=== PATIENT | male | born 1960 | race Caucasian/White ===

== ENCOUNTER 2018-06-06 14:16 | Emergency (ER) | payer OTHER ==
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
[2018-06-06] MEDS ORDERED: Sodium Chloride 0.9% 1,000 ML IV SCH (15:45)
[2018-06-06] MEDS ORDERED: Sodium Chloride 0.9% 10 ML Syringe FLUSH ONE (15:51)
[2018-06-06] MEDS ORDERED: Sodium Chloride 0.9% 80 ML IV SCH (16:00)
[2018-06-06] MEDS ORDERED: Iopamidol 612 MG/ML 100 ML Bottle IV SCH (16:00)
[2018-06-06] MEDS ORDERED: Ketorolac 30 MG/ML SDV IVPUSH ONE (16:29)
[2018-06-06 16:40] VITALS: BP 118/68
== END 2018-06-06 17:47 | disposition home or self-care (01) ==
LOC: JP.ED 14:16
DX: S22.31XA Fracture of one rib, right side, initial encounter for closed fracture (principal); S32.039A Unspecified fracture of third lumbar vertebra, initial encounter for closed fracture; S32.049A Unspecified fracture of fourth lumbar vertebra, initial encounter for closed fracture; S40.021A Contusion of right upper arm, initial encounter; I10 Essential (primary) hypertension; F17.210 Nicotine dependence, cigarettes, uncomplicated; Z88.6 Allergy status to analgesic agent; Z79.899 Other long term (current) drug therapy; V86.59XA Driver of other special all-terrain or other off-road motor vehicle injured in nontraffic accident, initial encounter
CPT/HCPCS: 36415; 71260; 74177; 80048; 85025; 96361; 96374; 99285; J1885; J7030; J7050; Q9967; 99284

== ENCOUNTER 2019-04-03 01:03 | Emergency (ER) | payer OTHER ==
[2019-04-03 01:20] VITALS: BP 159/99
[2019-04-03] MEDS ORDERED: Doxycycline 100 MG Cap PO ONE (01:30)
--- NOTE | 2019-04-03 01:34 | EDM.PDOC ---
ED HPI GENERAL MEDICAL PROBLEM - General Chief Complaint: Bite:Animal, Insect Stated Complaint: TICK BITE Time Seen by Provider: 04/03/19 01:30 Source of Information: Reports: Patient, Family, RN Notes Reviewed History Limitations: Reports: No Limitations - History of Present Illness INITIAL COMMENTS - FREE TEXT/NARRATIVE: 58-year-old gentleman presents emergency department today complaint of tick bite to his abdomen he just found this within the last 12 hours he has no other symptoms at this time - Related Data Allergies Allergy/AdvReac Type Severity Reaction Status Date / Time aspirin Allergy Swelling Verified 08/29/18 12:50 Home Meds: Home Meds Acetaminophen [Tylenol] 650 mg PO Q4HR PRN 09/01/15 [History] FLUoxetine [PROzac] 80 mg PO DAILY 04/03/19 [History] Gabapentin [Neurontin] 600 mg PO BEDTIME 04/03/19 [History] Past Medical History Cardiovascular History: Reports: Hypertension Genitourinary History: Reports: UTI, Recurrent Musculoskeletal History: Reports: Arthritis, Fracture Other Musculoskeletal History: lower back fx fx ribs 3 months ago Neurological History: Reports: Concussion Psychiatric History: Reports: Anxiety, Depression Hematologic History: Reports: Anemia, Other (See Below) Other Hematologic History: 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 Oncologic (Cancer) History: Reports: Basal Cell Carcinoma - Infectious Disease History Infectious Disease History: Reports: Chicken Pox - Past Surgical History Cardiovascular Surgical History: Reports: None Social & Family History - Family History Family Medical History: Noncontributory - Tobacco Use Smoking Status *Q: Current Every Day Smoker Years of Tobacco use: 10 Packs/Tins Daily: 0.5 - Caffeine Use Caffeine Use: Reports: Soda - Recreational Drug Use Recreational Drug Use: No ED ROS GENERAL - Review of Systems Review Of Systems: See Below Skin: Reports: Wound ED EXAM, ANIMAL BITE - Physical Exam Exam: See Below Text/Narrative:: He does have the tick present it is small consistent deer tick I was able to remove the head of the deer tick from his abdominal wound with #11 blade Exam Limited By: No Limitations General Appearance: Alert, WD/WN, No Apparent Distress Course - Vital Signs Last Recorded V/S: Last Vital Signs Temp 96.9 F 04/03/19 01:14 Pulse 105 H 04/03/19 01:14 Resp 16 04/03/19 01:14 BP 159/99 H 04/03/19 01:14 Pulse Ox 97 04/03/19 01:14 - Orders/Labs/Meds Orders: Active Orders 24 hr Category Date Time Status Doxycycline [Vibramycin] Med 04/03/19 01:30 Once 200 mg PO ONETIME ONE Departure - Departure Time of Disposition: 01:33 Disposition: Home, Self-Care 01 Condition: Fair Clinical Impression: Tick bite of abdomen Qualifiers: Encounter type: initial encounter Qualified Code(s): S30.861A - Insect bite ( nonvenomous) of abdominal wall, initial encounter; W57.XXXA - Bitten or stung by nonvenomous insect and other nonvenomous arthropods, initial encounter - Discharge Information Instructions: Tick Bite Information, Adult, [id number] Referrals: PCP,None [Primary Care Provider] - Additional Instructions: Please followup with your primary care provider in 3-5 days if not better, please call return to the emergency department with worsening of symptoms. - My Orders Last 24 Hours: My Active Orders 04/03/19 01:30 Doxycycline [Vibramycin] 200 mg PO ONETIME ONE - Assessment/Plan Last 24 Hours: My Active Orders 04/03/19 01:30 Doxycycline [Vibramycin] 200 mg PO ONETIME ONE Plan: Assessment Acuity = acute Site and laterality = tick bite to the abdomen Etiology = Ixodes scapularis Manifestations = none Location of injury = Home Lab values = none Plan Treat with doxycycline 200 mg by mouth 1 follow-up primary care 3-5 days development of symptoms This note was dictated using [employer] voice recognition software please call with any questions on syntax or grammar.
== END 2019-04-03 01:43 | disposition home or self-care (01) ==
LOC: JP.ED 01:03
DX: S30.861A Insect bite (nonvenomous) of abdominal wall, initial encounter (principal); F17.210 Nicotine dependence, cigarettes, uncomplicated; F41.9 Anxiety disorder, unspecified; F32.9 Major depressive disorder, single episode, unspecified; I10 Essential (primary) hypertension; W57.XXXA Bitten or stung by nonvenomous insect and other nonvenomous arthropods, initial encounter; Z79.899 Other long term (current) drug therapy; Z88.8 Allergy status to other drugs, medicaments and biological substances
CPT/HCPCS: 99282; A9270

== ENCOUNTER 2019-12-20 10:57 | Emergency (ER) | payer OTHER ==
--- NOTE | 2019-12-20 11:38 | EDM.PDOC ---
ED HPI GENERAL MEDICAL PROBLEM - General Chief Complaint: Upper Extremity Injury/Pain Stated Complaint: R RING FINGER INJURY Time Seen by Provider: 12/20/19 11:15 Source of Information: Reports: Patient History Limitations: Reports: No Limitations - History of Present Illness INITIAL COMMENTS - FREE TEXT/NARRATIVE: Patient got his right gloved hand caught in machinery at work and is complaining of intense pain in his right middle finger Onset: Today Onset Date: 12/20/19 Onset Time: 10:50 Location: Reports: Lower Extremity, Right Quality: Reports: Stabbing Severity: Severe Improves with: Reports: Movement - Related Data Allergies Allergy/AdvReac Type Severity Reaction Status Date / Time aspirin Allergy Swelling Verified 08/29/18 12:50 Home Meds: Home Meds Acetaminophen [Tylenol] 650 mg PO Q4HR PRN 09/01/15 [History] FLUoxetine [PROzac] 80 mg PO DAILY 04/03/19 [History] Gabapentin [Neurontin] 600 mg PO BEDTIME 04/03/19 [History] Past Medical History Cardiovascular History: Reports: Hypertension Genitourinary History: Reports: UTI, Recurrent Musculoskeletal History: Reports: Arthritis, Fracture Other Musculoskeletal History: lower back fx fx ribs 3 months ago Neurological History: Reports: Concussion Psychiatric History: Reports: Anxiety, Depression Hematologic History: Reports: Anemia, Other (See Below) Other Hematologic History: 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 Oncologic (Cancer) History: Reports: Basal Cell Carcinoma - Infectious Disease History Infectious Disease History: Reports: Chicken Pox - Past Surgical History Cardiovascular Surgical History: Reports: None Social & Family History - Family History Family Medical History: Noncontributory - Caffeine Use Caffeine Use: Reports: Soda Review of Systems - Review of Systems Review Of Systems: See Below Respiratory: Reports: No Symptoms Cardiovascular: Reports: No Symptoms Musculoskeletal: Reports: Hand Pain (Screw sheeting right middle finger.) Skin: Reports: No Symptoms ED EXAM, GENERAL - Physical Exam Exam: See Below Exam Limited By: No Limitations General Appearance: Alert, WD/WN, Severe Distress Eye Exam: Bilateral Eye: EOMI Ears: Normal External Exam Nose: Normal Inspection Throat/Mouth: Normal Inspection Respiratory/Chest: No Respiratory Distress Cardiovascular: Normal Peripheral Pulses GI/Abdominal: Soft, Non-Tender Extremities: Other (Right third digit exhibits swelling in the distal phalanx with blood around the base of the nail. There is no obvious deformity. Right fourth digit exhibits a circumferential laceration just distal to the distal inner phalangeal joint. Is a near complete amputation.) Neurological: Alert, Oriented Psychiatric: Anxious Skin Exam: Warm, Dry Course - Orders/Labs/Meds Orders: Active Orders 24 hr Category Date Time Status Hand 2V Rt [CR] Stat Exams 12/20/19 Taken COMPREHENSIVE METABOLIC PN,CMP [CHEM] Routine Lab 12/20/19 11:44 Received INR,PT,PROTHROMBIN TIME [COAG] Routine Lab 12/20/19 11:44 Received PTT,PARTIAL THROMBOPLSTIN TIME [COAG] Routine Lab 12/20/19 11:44 Received Sodium Chloride 0.9% [Normal Saline] 1,000 ml Med 12/20/19 11:30 Active IV ASDIRECTED Medication Orders Sodium Chloride (Normal Saline) 1,000 mls @ 150 mls/hr IV ASDIRECTED NEY Labs: Laboratory Tests 12/20/19 Range/Units 11:44 WBC 9.5 (4.5-11.0) K/uL RBC 5.07 (4.30-5.90) M/uL Hgb 14.7 D (12.0-15.0) g/dL Hct 45.0 (40.0-54.0) % MCV 89 (80-98) fL MCH 29 (27-31) pg MCHC 33 (32-36) % Plt Count 218 (150-400) K/uL Meds: Medications Generic Name Dose Route Start Last Admin Trade Name Freq PRN Reason Stop Dose Admin Sodium Chloride 1,000 mls @ 150 mls/hr 12/20/19 11:30 Normal Saline IV ASDIRECTED NEY Discontinued Medications Generic Name Dose Route Start Last Admin Trade Name Freq PRN Reason Stop Dose Admin Hydromorphone HCl 1 mg 12/20/19 11:29 12/20/19 11:45 Dilaudid IVPUSH 12/20/19 11:30 1 mg ONETIME ONE Administration Ondansetron HCl 4 mg 12/20/19 11:29 12/20/19 11:49 Zofran IVPUSH 12/20/19 11:30 4 mg ONETIME ONE Administration Departure - Departure Time of Disposition: 12:06 ([place] the patient with on-call physician at [facility] Dr. hZu. Patient has been accepted there.) Disposition: DC/Tfer to Other 70 Condition: Fair Clinical Impression: Crushing injury of finger, right - Discharge Information Referrals: PCP,None [Primary Care Provider] - Forms: ED Department Discharge, Interfacility Transfer [facility] Sepsis Event Note - Focused Exam Date Exam was Performed: 12/20/19 Time Exam was Performed: 11:52 - My Orders Last 24 Hours: My Active Orders 12/20/19 Hand 2V Rt [CR] Stat 12/20/19 11:30 Sodium Chloride 0.9% [Normal Saline] 1,000 ml IV ASDIRECTED 12/20/19 11:44 COMPREHENSIVE METABOLIC PN,CMP [CHEM] Routine INR,PT,PROTHROMBIN TIME [COAG] Routine PTT,PARTIAL THROMBOPLSTIN TIME [COAG] Routine - Assessment/Plan Last 24 Hours: My Active Orders 12/20/19 Hand 2V Rt [CR] Stat 12/20/19 11:30 Sodium Chloride 0.9% [Normal Saline] 1,000 ml IV ASDIRECTED 12/20/19 11:44 COMPREHENSIVE METABOLIC PN,CMP [CHEM] Routine INR,PT,PROTHROMBIN TIME [COAG] Routine PTT,PARTIAL THROMBOPLSTIN TIME [COAG] Routine
[2019-12-20] MEDS: HYDROmorphone 1 MG/ML Syringe IVPUSH ONE ×2 (11:45→12:06)
[2019-12-20] MEDS: Ondansetron 4 MG/2 ML SDV IVPUSH ONE (11:49)
[2019-12-20] MEDS: Sodium Chloride 0.9% 1,000 ML IV SCH (11:59)
[2019-12-20] MEDS: Diphtheria,Pertussis(Acell),Tetanus Vaccine 0.5 ML SDV IM ONE (12:10)
[2019-12-20] MEDS: ceFAZolin 1 GM in Sodium Chloride 0.9% 50 ML IV ONE (12:12)
--- NOTE | 2019-12-20 12:24 | CRLCR ---
Indication: Right hand trauma Technique: Two images of the right hand. The study is limited due to overlying bandage material Comparison: None Findings: Transverse fracture with associated amputation of the distal tuft of the right ring finger. The soft tissues that contain the distal phalanx are from the remainder of the finger. I question a nondisplaced transverse fracture through the distal phalanx of the middle finger of the imaging is suboptimal and I am uncertain whether this is a true positive finding. Impression: 1. Transverse amputation type fracture of the distal tuft of the right ring finger. I question a nondisplaced fracture through the midportion of the distal phalanx of the right middle finger though this is not a definite finding. 2. Extensive soft tissue injury. Limited due to overlying bandage material Dictated by Giancarlo Richards MD @ Dec 20 2019 12:20PM Signed by Dr. Giancarlo Richards @ Dec 20 2019 12:22PM
== END 2019-12-20 12:51 | disposition other institution (70) ==
LOC: JP.ED 10:57
DX: S67.192A Crushing injury of right middle finger, initial encounter (principal); I10 Essential (primary) hypertension; Z88.6 Allergy status to analgesic agent; W31.9XXA Contact with unspecified machinery, initial encounter; Y99.0 Civilian activity done for income or pay
CPT/HCPCS: 36415; 73120; 80053; 85027; 85610; 85730; 90471; 90715; 96365; 96375; 99284; J0690; J1170; J2405; J7030; J7050

== ENCOUNTER 2019-12-23 17:23 | Emergency (ER) | payer OTHER ==
[2019-12-23 17:57] VITALS: BP 177/102; PULSE 127
--- NOTE | 2019-12-23 18:12 | EDM.PDOC ---
ED HPI GENERAL MEDICAL PROBLEM - General Chief Complaint: Wound Recheck Stated Complaint: WOUND RECHECK Time Seen by Provider: 12/23/19 18:08 Source of Information: Reports: Patient, RN Notes Reviewed History Limitations: Reports: No Limitations - History of Present Illness INITIAL COMMENTS - FREE TEXT/NARRATIVE: 59-year-old gentleman presents emergency department today for wound check he is status post amputation of digit #4 right hand was evaluated and treated at [facility]. He does have follow-up with orthopedics next week in [place] he has no complaints today - Related Data Allergies Allergy/AdvReac Type Severity Reaction Status Date / Time aspirin Allergy Swelling Verified 08/29/18 12:50 Home Meds: Home Meds Acetaminophen [Tylenol] 650 mg PO Q4HR PRN 09/01/15 [History] FLUoxetine [PROzac] 80 mg PO DAILY 04/03/19 [History] Gabapentin [Neurontin] 600 mg PO BEDTIME 04/03/19 [History] Amoxicillin/Potassium Clav [Amox-Clav 875-125 mg Tablet] 1 tab PO BID 12/23/19 [ History] oxyCODONE HCl/Acetaminophen [Oxycodone-Acetaminophen 5-325] 1 tab PO ASDIRECTED PRN 12/23/19 [History] Past Medical History Cardiovascular History: Reports: Hypertension Genitourinary History: Reports: UTI, Recurrent Musculoskeletal History: Reports: Arthritis, Fracture Other Musculoskeletal History: lower back fx fx ribs 3 months ago Neurological History: Reports: Concussion Psychiatric History: Reports: Anxiety, Depression Hematologic History: Reports: Anemia, Other (See Below) Other Hematologic History: 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 Oncologic (Cancer) History: Reports: Basal Cell Carcinoma - Infectious Disease History Infectious Disease History: Reports: Chicken Pox - Past Surgical History Cardiovascular Surgical History: Reports: None Social & Family History - Family History Family Medical History: Noncontributory - Tobacco Use Smoking Status *Q: Current Some Day Smoker Years of Tobacco use: 40 Packs/Tins Daily: 1 - Caffeine Use Caffeine Use: Reports: Coffee, Energy Drinks, Soda - Recreational Drug Use Recreational Drug Use: No ED ROS GENERAL - Review of Systems Review Of Systems: See Below Constitutional: Reports: No Symptoms Skin: Reports: Wound ED EXAM, GENERAL - Physical Exam Exam: See Below Free Text/Narrative:: Examination of the digit #4 in the right hand there is a skin flap that has been created it is healing well there is no erythema progressing up the digits he has limited range of the digit secondary to pain Exam Limited By: No Limitations General Appearance: Alert, WD/WN, No Apparent Distress Course - Vital Signs Last Recorded V/S: Last Vital Signs Temp 97.7 F 12/23/19 17:54 Pulse 127 H 12/23/19 17:54 Resp 16 12/23/19 17:54 BP 177/102 H 12/23/19 17:54 Pulse Ox 93 L 12/23/19 17:54 Departure - Departure Time of Disposition: 18:11 Disposition: Home, Self-Care 01 Condition: Fair Clinical Impression: Visit for wound check - Discharge Information Referrals: PCP,None [Primary Care Provider] - Additional Instructions: Please keep your follow-up appointment with orthopedics next week call or return to the emergency department with worsening of symptoms Sepsis Event Note - Evaluation Sepsis Screening Result: No Definite Risk - Focused Exam Vital Signs: Vital Signs Temp Pulse Resp BP Pulse Ox 12/23/19 17:54 97.7 F 127 H 16 177/102 H 93 L 12/23/19 17:37 97.7 F 127 H 16 177/102 H 93 L Date Exam was Performed: 12/23/19 Time Exam was Performed: 18:09 - Assessment/Plan Plan: Assessment Acuity = acute Site and laterality = wound check Etiology = secondary to trauma Manifestations = none Location of injury = work Lab values = none Plan Dressing was re-changed by nursing staff he will follow-up with orthopedics next week This note was dictated using [employer] voice recognition software please call with any questions on syntax or grammar.
== END 2019-12-23 18:20 | disposition home or self-care (01) ==
LOC: JP.ED 17:23
DX: Z48.89 Encounter for other specified surgical aftercare (principal); F41.9 Anxiety disorder, unspecified; F32.9 Major depressive disorder, single episode, unspecified; F17.210 Nicotine dependence, cigarettes, uncomplicated; Z88.6 Allergy status to analgesic agent; Z79.899 Other long term (current) drug therapy
CPT/HCPCS: 99282

== ENCOUNTER 2019-12-25 10:38 | Day surgery (SDC) | payer OTHER ==
[2019-12-25] MEDS ORDERED: Lidocaine 1% 20 ML MDV ONE (10:47)
[2019-12-25] MEDS ORDERED: Sodium Chloride 0.9% 1,000 ML IV SCH (11:30)
[2019-12-25] MEDS ORDERED: fentaNYL 100 MCG/2 ML SDV ONE (11:42)
[2019-12-25] MEDS ORDERED: Propofol 200 MG/20 ML SDV ONE ×3 (11:42→13:17)
[2019-12-25] MEDS ORDERED: Midazolam 1 MG/ML 2 ML SDV ONE (11:42)
[2019-12-25] MEDS ORDERED: ceFAZolin 2 GM in Premix Bag 1 BAG IV ONE (12:00)
[2019-12-25] MEDS ORDERED: Povidone-Iodine 10% Soln 118.25 ML Bottle ONE (12:39)
[2019-12-25] MEDS ORDERED: fentaNYL 100 MCG/2 ML SDV IVPUSH ONE (14:03)
[2019-12-25] MEDS ORDERED: oxyCODONE 5 MG Tab PO ONE (14:39)
[2019-12-25 15:28] VITALS: BP 127/76; PULSE 79
== END 2019-12-25 15:40 | disposition home or self-care (01) ==
LOC: JP.SDS 10:38
PROVIDERS: ATTEND Orthopaedic Surgery
DX: S62.632B Displaced fracture of distal phalanx of right middle finger, initial encounter for open fracture (principal); S68.624A Partial traumatic transphalangeal amputation of right ring finger, initial encounter; F32.9 Major depressive disorder, single episode, unspecified; G47.33 Obstructive sleep apnea (adult) (pediatric); F17.210 Nicotine dependence, cigarettes, uncomplicated; Z79.899 Other long term (current) drug therapy; Z88.8 Allergy status to other drugs, medicaments and biological substances; W23.0XXA Caught, crushed, jammed, or pinched between moving objects, initial encounter
CPT/HCPCS: 26236; 26765; 76000; A9270; J0690; J2001; J2250; J2704; J3010; J7030

== ENCOUNTER 2020-03-16 22:58 | Emergency (ER) | payer OTHER ==
[2020-03-16] MEDS ORDERED: Lactated Ringers 1,000 ML IV ONE (23:24)
[2020-03-16] MEDS ORDERED: Acetaminophen 325 MG Tab PO ONE (23:24)
[2020-03-16] MEDS ORDERED: Sodium Chloride 0.9% 10 ML Syringe FLUSH PRN (23:26)
--- NOTE | 2020-03-16 23:28 | EDM.PDOC ---
ED HPI GENERAL MEDICAL PROBLEM - General Chief Complaint: Bite:Animal, Insect Stated Complaint: BODY ACHES,COUGH Time Seen by Provider: 03/16/20 23:19 Source of Information: Reports: Patient, RN Notes Reviewed History Limitations: Reports: No Limitations - History of Present Illness INITIAL COMMENTS - FREE TEXT/NARRATIVE: 59-year-old gentleman presents emergency department a complaint of body aches heavy eyes lightheadedness he states he had a similar feeling when he was bit by a tick last year he has been out in the [place] he did not find a deer tick he has not had a rash but he does have a potential exposure he has been ill for about 3 days has been feverish at home. body aches Pain Score (Numeric/FACES): 9 headache Pain Score (Numeric/FACES): 9 - Related Data Allergies Allergy/AdvReac Type Severity Reaction Status Date / Time aspirin Allergy Swelling Verified 03/16/20 23:02 ibuprofen Allergy Other Verified 03/16/20 23:02 ketorolac [From Toradol] Allergy Swollen Verified 03/16/20 23:02 Tongue naproxen [From Naprosyn] Allergy Other Verified 03/16/20 23:02 Home Meds: Home Meds Acetaminophen [Tylenol] 650 mg PO Q4HR PRN 09/01/15 [History] FLUoxetine [PROzac] 80 mg PO DAILY 04/03/19 [History] Gabapentin [Neurontin] 600 mg PO BEDTIME 04/03/19 [History] Cyanocobalamin (Vitamin B-12) [Vitamin B-12] 1,000 mcg SL DAILY 12/25/19 [ History] Thiamine HCl [Vitamin B-1] 100 mg PO DAILY 12/25/19 [History] buPROPion HCL [Wellbutrin Xl] 300 mg PO DAILY 12/25/19 [History] Past Medical History Cardiovascular History: Reports: Hypertension Respiratory History: Reports: Sleep Apnea Genitourinary History: Reports: UTI, Recurrent Musculoskeletal History: Reports: Arthritis, Fracture Other Musculoskeletal History: lower back fx and fx ribs Neurological History: Reports: Concussion Psychiatric History: Reports: Anxiety, Depression Endocrine/Metabolic History: Reports: Obesity/BMI 30+ Hematologic History: Reports: Anemia, Other (See Below) Other Hematologic History: 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 Oncologic (Cancer) History: Reports: Basal Cell Carcinoma - Infectious Disease History Infectious Disease History: Reports: Chicken Pox - Past Surgical History HEENT Surgical History: Reports: Adenoidectomy, Myringotomy w Tube(s), Naso- Sinus Surgery, Tonsillectomy Cardiovascular Surgical History: Reports: None Social & Family History - Family History Family Medical History: Noncontributory - Tobacco Use Smoking Status *Q: Current Every Day Smoker Years of Tobacco use: 15 Packs/Tins Daily: 0.2 Second Hand Smoke Exposure: Yes - Caffeine Use Caffeine Use: Reports: None - Recreational Drug Use Recreational Drug Use: No ED ROS GENERAL - Review of Systems Review Of Systems: See Below Constitutional: Reports: Fever, Chills, Fatigue HEENT: Reports: No Symptoms Respiratory: Reports: No Symptoms Cardiovascular: Reports: Lightheadedness GI/Abdominal: Reports: No Symptoms : Reports: No Symptoms Musculoskeletal: Reports: Muscle Pain ED EXAM, ANIMAL BITE - Physical Exam Exam: See Below Exam Limited By: No Limitations General Appearance: Alert, WD/WN, No Apparent Distress Respiratory/Chest: No Respiratory Distress, Lungs Clear, Normal Breath Sounds, No Accessory Muscle Use, Chest Non-Tender Cardiovascular: No Murmur, Tachycardia GI/Abdominal: Soft, Non-Tender Course - Vital Signs Last Recorded V/S: Last Vital Signs Temp 96.7 F L 03/17/20 01:29 Pulse 103 H 03/17/20 01:29 Resp 19 03/17/20 01:29 BP 148/84 H 03/17/20 01:29 Pulse Ox 96 03/17/20 01:29 - Orders/Labs/Meds Orders: Active Orders 24 hr Category Date Time Status Peripheral IV Care [RC] . DIRECTED Care 03/16/20 23:26 Active Sodium Chloride 0.9% [Saline Flush] Med 03/16/20 23:26 Active 10 ml FLUSH ASDIRECTED PRN Peripheral IV Insertion Adult [OM.PC] Urgent Oth 03/16/20 23:26 Ordered Medication Orders Sodium Chloride (Saline Flush) 10 ml FLUSH ASDIRECTED PRN PRN Reason: Keep Vein Open Last Admin: 03/16/20 23:35 Dose: 10 ml Labs: Laboratory Tests 03/16/20 03/16/20 03/16/20 Range/Units 23:45 23:45 23:45 WBC (4.5-11.0) K/uL RBC (4.30-5.90) M/uL Hgb (12.0-15.0) g/dL Hct (40.0-54.0) % MCV (80-98) fL MCH (27-31) pg MCHC (32-36) % Plt Count (150-400) K/uL Neut % (Auto) (36-66) % Lymph % (Auto) (24-44) % Dorado % (Auto) (2-6) % Eos % (Auto) (2-4) % Baso % (Auto) (0-1) % Sodium 133 L (140-148) mmol/L Potassium 4.0 (3.6-5.2) mmol/L Chloride 98 L (100-108) mmol/L Carbon Dioxide 25 (21-32) mmol/L Anion Gap 14.0 (5.0-14.0) mmol/L BUN 11 (7-18) mg/dL Creatinine 1.1 (0.8-1.3) mg/dL Est Cr Clr Drug Dosing 78.91 mL/min Estimated GFR (MDRD) > 60 (>60) Glucose 138 H (74-106) mg/dL Lactic Acid 1.4 (0.4-2.0) mmol/L Calcium 8.3 L (8.5-10.1) mg/dL Total Bilirubin 0.4 (0.2-1.0) mg/dL AST 70 H D (15-37) U/L ALT 124 H (12-78) U/L Alkaline Phosphatase 82 (46-116) U/L Lactate Dehydrogenase 324 H (85-227) U/L Total Protein 7.0 (6.4-8.2) g/dL Albumin 3.3 L (3.4-5.0) g/dL Globulin 3.7 H (2.3-3.5) g/dL Albumin/Globulin Ratio 0.9 L (1.2-2.2) /31/20 Range/Units 23:50 WBC 4.9 (4.5-11.0) K/uL RBC 5.63 (4.30-5.90) M/uL Hgb 16.5 H (12.0-15.0) g/dL Hct 48.4 (40.0-54.0) % MCV 86 (80-98) fL MCH 29 (27-31) pg MCHC 34 (32-36) % Plt Count 80 L (150-400) K/uL Neut % (Auto) 67 H (36-66) % Lymph % (Auto) 21 L (24-44) % Dorado % (Auto) 12 H (2-6) % Eos % (Auto) 0 L (2-4) % Baso % (Auto) 1 (0-1) % Sodium (140-148) mmol/L Potassium (3.6-5.2) mmol/L Chloride (100-108) mmol/L Carbon Dioxide (21-32) mmol/L Anion Gap (5.0-14.0) mmol/L BUN (7-18) mg/dL Creatinine (0.8-1.3) mg/dL Est Cr Clr Drug Dosing mL/min Estimated GFR (MDRD) (>60) Glucose (74-106) mg/dL Lactic Acid (0.4-2.0) mmol/L Calcium (8.5-10.1) mg/dL Total Bilirubin (0.2-1.0) mg/dL AST (15-37) U/L ALT (12-78) U/L Alkaline Phosphatase (46-116) U/L Lactate Dehydrogenase (85-227) U/L Total Protein (6.4-8.2) g/dL Albumin (3.4-5.0) g/dL Globulin (2.3-3.5) g/dL Albumin/Globulin Ratio (1.2-2.2) Meds: Medications Generic Name Dose Route Start Last Admin Trade Name Freq PRN Reason Stop Dose Admin Sodium Chloride 10 ml 03/16/20 23:26 03/16/20 23:35 Saline Flush FLUSH 10 ml ASDIRECTED PRN Administration Keep Vein Open Discontinued Medications Generic Name Dose Route Start Last Admin Trade Name Freq PRN Reason Stop Dose Admin Acetaminophen 650 mg 03/16/20 23:24 03/16/20 23:35 Tylenol PO 03/16/20 23:25 650 mg NOW ONE Administration Hydromorphone HCl 0.5 mg 03/17/20 01:07 03/17/20 01:25 Dilaudid IVPUSH 03/17/20 01:08 0.5 mg ONETIME ONE Administration Lactated Ringer's 1,000 mls @ 999 mls/hr 03/16/20 23:24 03/16/20 23:35 Ringers, Lactated IV 03/17/20 00:24 999 mls/hr BOLUS ONE Administration Doxycycline Hyclate 100 mg/ 100 mls @ 100 mls/hr 03/17/20 01:07 03/17/20 01: 26 Sodium Chloride IV 03/17/20 02:06 100 mls/hr ONETIME ONE Administration Departure - Departure Time of Disposition: 02:32 Disposition: Home, Self-Care 01 Condition: Fair Clinical Impression: Tick bite Qualifiers: Encounter type: initial encounter Qualified Code(s): W57.XXXA - Bitten or stung by nonvenomous insect and other nonvenomous arthropods, initial encounter - Discharge Information Instructions: Tick Bite Information, Adult Referrals: Manuel Licona MD [Primary Care Provider] - Forms: ED Department Discharge Additional Instructions: Take full course of antibiotics, use Tylenol as needed for fever control and body aches, please followup with your primary care provider in 3-5 days if not better, please call return to the emergency department with worsening of symptoms. Sepsis Event Note - Evaluation Sepsis Screening Result: Possible Sepsis Risk - Focused Exam Vital Signs: Vital Signs Temp Pulse Resp BP Pulse Ox 03/17/20 01:29 96.7 F L 103 H 19 148/84 H 96 03/17/20 00:24 100.6 F 106 H 24 H 145/99 H 91 L 03/16/20 23:55 100.1 F 110 H 28 H 139/95 H 96 03/16/20 23:18 115 H 18 132/93 H 95 03/16/20 23:12 98.0 F 116 H 11 L 172/99 H 95 03/16/20 23:10 98.0 F 116 H 11 L 172/99 H 95 Date Exam was Performed: 03/17/20 Time Exam was Performed: 02:30 - My Orders Last 24 Hours: My Active Orders 03/16/20 23:26 Peripheral IV Care [RC] . DIRECTED Sodium Chloride 0.9% [Saline Flush] 10 ml FLUSH ASDIRECTED PRN Peripheral IV Insertion Adult [OM.PC] Urgent - Assessment/Plan Last 24 Hours: My Active Orders 03/16/20 23:26 Peripheral IV Care [RC] . DIRECTED Sodium Chloride 0.9% [Saline Flush] 10 ml FLUSH ASDIRECTED PRN Peripheral IV Insertion Adult [OM.PC] Urgent Plan: Acuity = acute Site and laterality = probable tickborne illness Etiology = Ixodes scapularis Manifestations = none Location of injury = Home Lab values = platelets low at 80 consistent with thrombocytopenia, sodium low at 133 consistent hyponatremia lactic acid normal 1.4 AST elevated 70 ALT elevated 124 consistent with elevated liver enzymes LDH is elevated 324 Plan He felt significantly better after 1 dose of Dilaudid and 1 dose of doxycycline , plan is discharged home on doxycycline 100 mg p.o. twice daily x14 days follow -up primary care 3 to 5 days if no improvement
[2020-03-17] MEDS ORDERED: HYDROmorphone 0.5 MG/0.5 ML Syringe IVPUSH ONE (01:07)
[2020-03-17] MEDS ORDERED: Doxycycline 100 MG in Sodium Chloride 0.9% 100 ML IV ONE (01:07)
[2020-03-17 01:29] VITALS: BP 148/84; PULSE 103
== END 2020-03-17 02:58 | disposition home or self-care (01) ==
LOC: JP.ED 22:58
DX: T14.8XXA Other injury of unspecified body region, initial encounter (principal); E66.9 Obesity, unspecified; Z68.34 Body mass index [BMI] 34.0-34.9, adult; I10 Essential (primary) hypertension; F41.9 Anxiety disorder, unspecified; F32.9 Major depressive disorder, single episode, unspecified; F17.210 Nicotine dependence, cigarettes, uncomplicated; Z88.6 Allergy status to analgesic agent; Z88.8 Allergy status to other drugs, medicaments and biological substances; W57.XXXA Bitten or stung by nonvenomous insect and other nonvenomous arthropods, initial encounter
CPT/HCPCS: 36415; 80053; 83605; 83615; 85025; 96361; 96365; 96375; 99283; 99284; A9270; J1170; J3490; J7050; J7120

== ENCOUNTER 2020-03-18 19:40 | Observation (INO) | payer OTHER ==
[2020-03-18] MEDS ORDERED: Lactated Ringers 1,000 ML IV SCH (20:15)
[2020-03-18] MEDS ORDERED: Doxycycline 100 MG in Sodium Chloride 0.9% 100 ML IV ONE (20:16)
[2020-03-18] MEDS ORDERED: HYDROmorphone 1 MG/ML Syringe IVPUSH ONE (20:26)
--- NOTE | 2020-03-18 20:27 | EDM.PDOC ---
ED HPI GENERAL MEDICAL PROBLEM - General Chief Complaint: General Stated Complaint: SOB,WEAK Time Seen by Provider: 03/18/20 20:14 Source of Information: Reports: Patient, Old Records, RN Notes Reviewed History Limitations: Reports: No Limitations - History of Present Illness INITIAL COMMENTS - FREE TEXT/NARRATIVE: 59-year-old gentleman presents emergency department a complaint of body aches and fever, I had the opportunity to evaluate him 2 days prior was suspicious for tickborne illness he did have a tick exposure however no bite was found he is the only family member that is ill we did do treatment of doxycycline IV as well as started p.o. antibiotics. He states initially he felt better but he just never has fully recovered fevers continue body aches continue he also complains of headache does have an allergy to NSAIDs, has been using Tylenol for pain Generalized Pain Score (Numeric/FACES): 9 - Related Data Allergies Allergy/AdvReac Type Severity Reaction Status Date / Time aspirin Allergy Swelling Verified 03/16/20 23:02 ibuprofen Allergy Other Verified 03/16/20 23:02 ketorolac [From Toradol] Allergy Swollen Verified 03/16/20 23:02 Tongue naproxen [From Naprosyn] Allergy Other Verified 03/16/20 23:02 Home Meds: Home Meds Acetaminophen [Tylenol] 650 mg PO Q4HR PRN 09/01/15 [History] FLUoxetine [PROzac] 80 mg PO DAILY 04/03/19 [History] Gabapentin [Neurontin] 600 mg PO BEDTIME 04/03/19 [History] Cyanocobalamin (Vitamin B-12) [Vitamin B-12] 1,000 mcg SL DAILY 12/25/19 [ History] Thiamine HCl [Vitamin B-1] 100 mg PO DAILY 12/25/19 [History] buPROPion HCL [Wellbutrin Xl] 300 mg PO DAILY 12/25/19 [History] Doxycycline [Doxycycline Hyclate] 100 mg PO BID 03/18/20 [History] Past Medical History Cardiovascular History: Reports: Hypertension Respiratory History: Reports: Sleep Apnea Genitourinary History: Reports: UTI, Recurrent Musculoskeletal History: Reports: Arthritis, Fracture Other Musculoskeletal History: lower back fx and fx ribs Neurological History: Reports: Concussion Psychiatric History: Reports: Anxiety, Depression Endocrine/Metabolic History: Reports: Obesity/BMI 30+ Hematologic History: Reports: Anemia, Other (See Below) Other Hematologic History: 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 Oncologic (Cancer) History: Reports: Basal Cell Carcinoma - Infectious Disease History Infectious Disease History: Reports: Chicken Pox - Past Surgical History HEENT Surgical History: Reports: Adenoidectomy, Myringotomy w Tube(s), Naso- Sinus Surgery, Tonsillectomy Cardiovascular Surgical History: Reports: None Social & Family History - Family History Family Medical History: Noncontributory - Tobacco Use Smoking Status *Q: Current Every Day Smoker Years of Tobacco use: 15 Packs/Tins Daily: 0.5 - Caffeine Use Caffeine Use: Reports: Soda - Recreational Drug Use Recreational Drug Use: No ED ROS GENERAL - Review of Systems Review Of Systems: See Below Constitutional: Reports: Fever, Chills, Weakness, Diaphoresis HEENT: Reports: No Symptoms Respiratory: Reports: Shortness of Breath Cardiovascular: Reports: No Symptoms GI/Abdominal: Reports: No Symptoms : Reports: No Symptoms Musculoskeletal: Reports: Muscle Pain Skin: Reports: No Symptoms Neurological: Reports: No Symptoms Psychiatric: Reports: No Symptoms ED EXAM, GENERAL - Physical Exam Exam: See Below Exam Limited By: No Limitations General Appearance: Alert, Mild Distress Neck: Normal Inspection, Supple, Non-Tender, Full Range of Motion Respiratory/Chest: No Respiratory Distress, Lungs Clear, Normal Breath Sounds, No Accessory Muscle Use, Chest Non-Tender Cardiovascular: Regular Rate, Rhythm, No Murmur GI/Abdominal: Soft, Non-Tender Extremities: No Pedal Edema Course - Vital Signs Last Recorded V/S: Last Vital Signs Temp 97.7 F 03/18/20 20:06 Pulse 98 03/18/20 21:25 Resp 16 03/18/20 21:25 BP 140/78 03/18/20 21:25 Pulse Ox 94 L 03/18/20 21:25 - Orders/Labs/Meds Orders: Active Orders 24 hr Category Date Time Status Vital Signs [RC] Q1H Care 03/18/20 20:14 Active Chest 1V Frontal [CR] Urgent Exams 03/18/20 21:39 Taken BABESIA MICROTI ANTIBODY PANEL Urgent Lab 03/18/20 20:15 Received CORONAVIRUS COVID-19, SHELDON Stat Lab 03/18/20 20:16 Ordered CULTURE BLOOD [BC] Urgent Lab 03/18/20 20:15 Received CULTURE BLOOD [BC] Urgent Lab 03/18/20 20:33 Received HUMAN GRANULOCYTIC DAMIAN-HGE Urgent Lab 03/18/20 20:15 Received LYME, TOTAL AB TEST/REFLEX Urgent Lab 03/18/20 20:15 Received UA W/MICROSCOPIC [URIN] Urgent Lab 03/18/20 20:14 Ordered Lactated Ringers [Ringers, Lactated] 1,000 ml Med 03/18/20 20:15 Active IV ASDIRECTED Blood Culture x2 Reflex Set [OM.PC] Urgent Oth 03/18/20 20:14 Ordered Isolation [COMM] Routine Oth 03/18/20 20:16 Ordered Isolation [COMM] Routine Oth 03/18/20 20:24 Ordered Medication Orders Lactated Ringer's (Ringers, Lactated) 1,000 mls @ 999 mls/hr IV ASDIRECTED NEY Last Admin: 03/18/20 20:38 Dose: 999 mls/hr Labs: Laboratory Tests 03/18/20 03/18/20 03/18/20 Range/Units 20:33 20:33 20:33 WBC 5.2 (4.5-11.0) K/uL RBC 5.53 (4.30-5.90) M/uL Hgb 16.0 H (12.0-15.0) g/dL Hct 47.1 (40.0-54.0) % MCV 85 (80-98) fL MCH 29 (27-31) pg MCHC 34 (32-36) % Plt Count 98 L (150-400) K/uL Neut % (Auto) 70 H (36-66) % Lymph % (Auto) 15 L (24-44) % Cobb % (Auto) 14 H (2-6) % Eos % (Auto) 0 L (2-4) % Baso % (Auto) 1 (0-1) % Sodium 135 L (140-148) mmol/L Potassium 3.6 (3.6-5.2) mmol/L Chloride 99 L (100-108) mmol/L Carbon Dioxide 25 (21-32) mmol/L Anion Gap 14.6 H (5.0-14.0) mmol/L BUN 15 (7-18) mg/dL Creatinine 1.1 (0.8-1.3) mg/dL Est Cr Clr Drug Dosing 78.91 mL/min Estimated GFR (MDRD) > 60 (>60) Glucose 172 H (74-106) mg/dL Lactic Acid 1.8 (0.4-2.0) mmol/L Calcium 8.3 L (8.5-10.1) mg/dL Total Bilirubin 0.5 (0.2-1.0) mg/dL AST 63 H (15-37) U/L ALT 125 H (12-78) U/L Alkaline Phosphatase 84 (46-116) U/L C-Reactive Protein 2.94 H (0.0-0.3) mg/dL Total Protein 6.9 (6.4-8.2) g/dL Albumin 3.3 L (3.4-5.0) g/dL Globulin 3.6 H (2.3-3.5) g/dL Albumin/Globulin Ratio 0.9 L (1.2-2.2) Procalcitonin ng/mL 03/18/20 Range/Units 20:33 WBC (4.5-11.0) K/uL RBC (4.30-5.90) M/uL Hgb (12.0-15.0) g/dL Hct (40.0-54.0) % MCV (80-98) fL MCH (27-31) pg MCHC (32-36) % Plt Count (150-400) K/uL Neut % (Auto) (36-66) % Lymph % (Auto) (24-44) % Cobb % (Auto) (2-6) % Eos % (Auto) (2-4) % Baso % (Auto) (0-1) % Sodium (140-148) mmol/L Potassium (3.6-5.2) mmol/L Chloride (100-108) mmol/L Carbon Dioxide (21-32) mmol/L Anion Gap (5.0-14.0) mmol/L BUN (7-18) mg/dL Creatinine (0.8-1.3) mg/dL Est Cr Clr Drug Dosing mL/min Estimated GFR (MDRD) (>60) Glucose (74-106) mg/dL Lactic Acid (0.4-2.0) mmol/L Calcium (8.5-10.1) mg/dL Total Bilirubin (0.2-1.0) mg/dL AST (15-37) U/L ALT (12-78) U/L Alkaline Phosphatase (46-116) U/L C-Reactive Protein (0.0-0.3) mg/dL Total Protein (6.4-8.2) g/dL Albumin (3.4-5.0) g/dL Globulin (2.3-3.5) g/dL Albumin/Globulin Ratio (1.2-2.2) Procalcitonin 0.25 ng/mL Meds: Medications Generic Name Dose Route Start Last Admin Trade Name Freq PRN Reason Stop Dose Admin Lactated Ringer's 1,000 mls @ 999 mls/hr 03/18/20 20:15 03/18/20 20:38 Ringers, Lactated IV 999 mls/hr ASDIRECTED NEY Administration Discontinued Medications Generic Name Dose Route Start Last Admin Trade Name Freq PRN Reason Stop Dose Admin Hydromorphone HCl 1 mg 03/18/20 20:26 03/18/20 20:40 Dilaudid IVPUSH 03/18/20 20:27 1 mg ONETIME ONE Administration Doxycycline Hyclate 100 mg/ 100 mls @ 100 mls/hr 03/18/20 20:16 03/18/20 20: 38 Sodium Chloride IV 03/18/20 21:15 100 mls/hr ONETIME ONE Administration Departure - Departure Time of Disposition: 22:16 Disposition: Admitted As Inpatient 66 Condition: Fair Clinical Impression: Tick bite Qualifiers: Encounter type: initial encounter Qualified Code(s): W57.XXXA - Bitten or stung by nonvenomous insect and other nonvenomous arthropods, initial encounter - Discharge Information Referrals: Manuel Licona MD [Primary Care Provider] - Forms: ED Department Discharge Sepsis Event Note - Evaluation Sepsis Screening Result: No Definite Risk - Focused Exam Vital Signs: Vital Signs Temp Pulse Resp BP Pulse Ox 03/18/20 21:25 98 16 140/78 94 L 03/18/20 20:36 99 18 131/82 95 03/18/20 20:06 97.7 F 111 H 20 147/86 H 95 03/18/20 19:58 97.7 F 111 H 20 147/86 H 95 Date Exam was Performed: 03/18/20 Time Exam was Performed: 22:14 - My Orders Last 24 Hours: My Active Orders 03/18/20 20:14 Vital Signs [RC] Q1H UA W/MICROSCOPIC [URIN] Urgent Blood Culture x2 Reflex Set [OM.PC] Urgent 03/18/20 20:15 BABESIA MICROTI ANTIBODY PANEL Urgent CULTURE BLOOD [BC] Urgent HUMAN GRANULOCYTIC DAMIAN-HGE Urgent LYME, TOTAL AB TEST/REFLEX Urgent Lactated Ringers [Ringers, Lactated] 1,000 ml IV ASDIRECTED 03/18/20 20:16 CORONAVIRUS COVID-19, SHELDON Stat Isolation [COMM] Routine 03/18/20 20:24 Isolation [COMM] Routine 03/18/20 20:33 CULTURE BLOOD [BC] Urgent 03/18/20 21:39 Chest 1V Frontal [CR] Urgent - Assessment/Plan Last 24 Hours: My Active Orders 03/18/20 20:14 Vital Signs [RC] Q1H UA W/MICROSCOPIC [URIN] Urgent Blood Culture x2 Reflex Set [OM.PC] Urgent 03/18/20 20:15 BABESIA MICROTI ANTIBODY PANEL Urgent CULTURE BLOOD [BC] Urgent HUMAN GRANULOCYTIC DAMIAN-HGE Urgent LYME, TOTAL AB TEST/REFLEX Urgent Lactated Ringers [Ringers, Lactated] 1,000 ml IV ASDIRECTED 03/18/20 20:16 CORONAVIRUS COVID-19, SHELDON Stat Isolation [COMM] Routine 03/18/20 20:24 Isolation [COMM] Routine 03/18/20 20:33 CULTURE BLOOD [BC] Urgent 03/18/20 21:39 Chest 1V Frontal [CR] Urgent Plan: Assessment Acuity = acute Site and laterality = probable tickborne illness Etiology = Ixodes scapularis Manifestations = fever, body aches Location of injury = Home Lab values = CBC within normal limits platelets low at 98 consistent with thrombocytopenia glucose elevated 172 consistent with hyperglycemia lactic acid normal 1.8 AST elevated 63 ALT elevated 125 consistent with lipid enzymes being elevated CRP slightly elevated 294 procalcitonin normal at 0.25 chest x-ray I did review films myself I cannot appreciate any acute process, the official read from radiology is pending Plan Call discussed case with attending physician physician who agreed to come and evaluate the patient in the hospital for admission at [id number] thus far blood cultures have been drawn urine is pending doxycycline IV has been initiated This note was dictated using [employer] voice recognition software please call with any questions on syntax or grammar.
[2020-03-18] MEDS ORDERED: Acetaminophen 325 MG Tab, 50 Tab Bulk Bottle PO PRN (22:20)
[2020-03-18] MEDS ORDERED: cefTRIAXone 1 GM Vial IV SCH (23:15)
[2020-03-18] MEDS ORDERED: traMADol 50 MG Tab PO PRN (23:16)
[2020-03-18] MEDS ORDERED: cefTRIAXone 1 GM in Sodium Chloride 0.9% 50 ML IV SCH (23:30)
[2020-03-19] MEDS: Sodium Chloride 0.9% 1,000 ML IV SCH ×2 (00:02→08:05)
[2020-03-19] MEDS: Acetaminophen 325 MG Tab PO PRN ×3 (00:19→08:05)
--- NOTE | 2020-03-19 01:36 | HP ---
IDENTIFYING DATA: Giancarlo Pérez is a 59-year-old single male from [place]. CHIEF COMPLAINT: "I think I have a tick bite." HISTORY OF PRESENT ILLNESS: Adult male, currently on medical necessitated work leave following a work-related injury with amputation of distal aspect of the dominant right 4th finger, noted onset of constitutional symptoms including subjective fever, chilling, diaphoresis, general headache, aching eyes, anorexia, and nausea, with generalized stiffness and aching. Onset of symptoms was 5 days ago. After 2 days of persistent symptoms in spite of rest, fluids, and use of acetaminophen, he presented to the emergency room for evaluation. He was found to have indication of thrombocytopenia and mildly elevated transaminases with constitutional symptoms suggesting a probable tick-related infection. Doxycycline was initiated. He initially felt some improvement in his fevers and myalgias; however, with relapsing symptoms returned to the emergency room today. He denies sore throat, nasal congestion, coryza, cough, or noted shortness of breath. He is a tobacco user. No history of current hypertension, diabetes, obstructive pulmonary disease, or known COVID exposure. He has no history of identified cardiac disease. He is admitted for further supportive cares. PAST MEDICAL HISTORY: Noted history of PTSD secondary to experience. He is followed by [facility] with pharmacologic therapies in place. Does report a past history of elevated blood pressure with antihypertensive therapies having been discontinued when his blood pressures corrected. PREVIOUS SURGERIES: Include adenoidectomy, PE tube placement, sinus surgery, and tonsillectomy in the remote past. Additionally, with a work injury earlier this year he had near total amputation of the distal aspect of the right 4th finger requiring subsequent surgical amputation, skin flap, and engagement in occupational therapy services. ALLERGIES: REPORTED TO ASPIRIN, IBUPROFEN, KETOROLAC, AND NAPROXEN WITH REPORTS OF TONGUE SWELLING AND GENERALIZED PRURITUS. CURRENT MEDICATIONS: Acetaminophen 650 mg q.4 hours p.r.n., fluoxetine 80 mg daily, gabapentin 600 mg at bedtime, vitamin B12 1000 mcg daily, thiamine 100 mg daily, bupropion XL 300 mg daily, doxycycline 100 mg p.o. b.i.d. HABITS: Smoker of 1/3 pack per day. Caffeine intake averages 6 pack of carbonated beverage daily without use of coffee. No current alcohol use. Denies other illicit drug use. SOCIAL HISTORY: Resides with significant other. Currently on work leave secondary to work- related injury with engagement in occupational therapy services. 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 FAMILY HISTORY: Denies other familial or close contact history of COVID-19, acute respiratory symptoms, or similar constitutional symptoms. REVIEW OF SYSTEMS: NEUROLOGIC: History of depression and PTSD with accompanying anxiety, chronic, stable on pharmacologic therapies. No history of stroke, seizures, or focal weakness. CARDIAC: Hypertension by history. Otherwise unremarkable. RESPIRATORY: No shortness of breath, purulent sputum production, asthma, emphysema, or COVID-19 exposure. GASTROINTESTINAL: Denies chronic dyspepsia, nausea, hepatitis, jaundice, cholecystitis, or bowel changes. GENITOURINARY: No history of chronic renal disease, UTIs, or dysuria. Reports a history of passage of renal stone. PHYSICAL EXAMINATION: GENERAL: Appearance is that of an adult male, mildly listless in appearance, now feeling improvement in constitutional symptoms following administration of analgesic in the emergency room. INITIAL VITALS: Temperature 97.7, pulse 98, respiratory rate 16, blood pressure 140/78, O2 saturations 94% on room air. HEENT: No facial asymmetries. Pupils reactive. Mild sensitivity to light. Sclerae anicteric. No nasal congestion or coryza. Oral mucosa is moist. Noninflamed. NECK: No adenopathy, nuchal rigidity, or stridor. Brisk carotid pulses. LUNGS: Symmetrical, clear, resonant, non-tachypneic. HEART: Regular, without murmurs or gallops noted. ABDOMEN: Nontender, nondistended. No organomegaly. No guarding, rebound, or referred pain. No CVA tenderness. Active sounds. Good femoral pulses. EXTREMITIES: Warm, pink, and dry. Non-diaphoretic. Strong radial, posterior tibial, and dorsal pedal pulses are noted. Brisk capillary refill without paresthesias. Evidence of previous amputation of the distal aspect of the right 4th finger. Skin flap is closed. LABORATORY DATA: Labs on admission: WBC 5.2, hemoglobin 16.0, platelet count remains low at 98,000, with a differential of 70 neutrophils, 15 lymphocytes, 14 monocytes. Sodium 135, potassium 3.6, BUN 15, creatinine 1.1. Lactic acid within normal range at 1.8, glucose 172 in a nonfasting state. AST 63, ALT 125, alkaline phosphatase 84. C-reactive protein mildly elevated at 2.94. Procalcitonin 0.25. IMAGING: Chest x-ray, pulmonary beyer appear clear. No infiltrates or effusion. Cardiac silhouette is unremarkable. IMPRESSION: 1. Subjective fever, myalgias, arthralgias, and headaches. Suspect tick-borne infection. 2. History of recent partial amputation of the distal aspect of the right 4th finger, requiring surgical care and rehab services. 3. History of post-traumatic stress disorder with depression and anxiety, currently on pharmacologic therapy with stable symptoms. 4. Tobacco use. PLAN: The patient is admitted to observation status. In addition to oral doxycycline we will provide Rocephin 1 g IV daily during anticipated short-term hospital stay. Additional labs including COVID-19 and tick antibody panel is requested. We will provide tramadol on a p.r.n. basis for discomfort, noting allergic response to use of non-steroidals. Additionally, Tylenol can be administered on a p.r.n. basis in the event of documented fever or chills. Full code status anticipated. We will allow dietary intake as tolerated. Rick Lee MD /[id number]
[2020-03-19] MEDS ORDERED: traMADol 50 MG Tab PO PRN (05:23)
--- NOTE | 2020-03-19 06:32 | PN ---
DATE OF SERVICE: 03/19/2020 SUBJECTIVE: A 59-year-old male was admitted in the late night hours with subjective fever, chills, headaches, and myalgias with suspected tick-related infection. Had been on oral doxycycline for approximately 24 to 36 hours without improvement in symptoms before returning to the emergency room for evaluation. At time of ER visit, labs revealed a persistent thrombocytopenia with mildly elevated liver transaminases. WBC and hemoglobin were within normal limits as were general chemistries. COVID-19 screen, tick-borne disease panel, and blood cultures had been obtained with results pending through the nighttime. He rested the majority of the evening with fever identified by nursing caregiving staff this morning. He offers no additional new complaints. Generalized headache and myalgias persist. OBJECTIVE: VITAL SIGNS: T-max 39.1 degrees centigrade, blood pressure 125/97, pulse rate 73, respiratory rate 16. GENERAL: He was arousable, oriented, and notes general myalgias. No cough or sputum production. NECK: Without nuchal rigidity. LUNGS: Clear and nontachypneic. HEART: Regular without gallops. EXTREMITIES: Warm and pink. No rash noted. Diffuse mild arthralgias of large and small joints without visible soft tissue swelling. IMPRESSION AND PLAN: Febrile presentation. We will continue with combined antibiotic therapy with oral doxycycline and IV Rocephin initiated on admission yesterday evening. Continue to provide acetaminophen on a p.r.n. basis. The patient reports intolerance to nonsteroidals with previous angioedema. Await blood tick disease and coronavirus disease 19 panels, and continue to provide supportive cares with analgesics, acetaminophen, and if necessary IV fluids. [id number] Rick Lee MD /[id number]
[2020-03-19] MEDS ORDERED: buPROPion 150 MG Tab.ER PO SCH (09:00)
[2020-03-19] MEDS ORDERED: Thiamine 100 MG Tab PO SCH (09:00)
[2020-03-19] MEDS ORDERED: Doxycycline 100 MG Cap PO SCH (09:00)
[2020-03-19] MEDS ORDERED: FLUoxetine 20 MG Cap PO SCH (09:00)
[2020-03-19] MEDS ORDERED: Cyanocobalamin (Vitamin B12) 1,000 MCG Tab PO SCH (09:00)
[2020-03-19 10:43] VITALS: BP 128/61; PULSE 97
--- NOTE | 2020-03-19 10:58 | PCM.DCSUM1 ---
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 He was admitted for IV antibiotic therapy and IV fluid hydration with suspected significant anaplasmosis infection. Diagnosis: Stroke: No - Discharge Data Discharge Date: 03/19/20 Discharge Disposition: Home, Self-Care 01 Condition: Fair - Referral to Home Health Primary Care Physician: Manuel Licona MD - Discharge Diagnosis/Problem(s) (1) Anaplasmosis SNOMED Code(s): 879614328 ICD Code: A77.49 - OTHER EHRLICHIOSIS Status: Suspected - Patient Summary/Data Hospital Course: Masood presented to the emergency room with fever, shaking chills, headache and myalgias. He was recently started on doxycycline for presumed tickborne illness. He continued to have high fevers as well as a severe headache so he came back to the emergency room. There was some evidence for dehydration. He had a fever to 103 in the emergency room. He received IV ceftriaxone in addition to the doxycycline. Given the severity of his symptoms he was admitted to the hospital for further management. Overnight he had an additional fever but his temperature curve was improving. By the morning after discharge she is feeling a fair amount better. His headache has essentially resolved and his myalgias have resolved. Vital signs have been stable. He feels well enough to go home at this time. I did encourage him to maintain adequate hydration as the fever can be dehydrating. He has doxycycline at home and will complete his course of doxycycline. We did review the potential side effect of the medication that pertains to the increased sensitivity of the skin to sunlight. He will be following up if symptoms do not continue to get better or if they get worse. COVID19 testing was negative. - Patient Instructions Diet: Regular Diet as Tolerated Activity: As Tolerated Showering/Bathing: May Shower Notify Provider of: Fever, Increased Pain, Nausea and/or Vomiting Other/Special Instructions: 1. You were in the hospital for management of anaplasmosis that resulted from a tick bite. Your condition has been improving with IV antibiotics and some IV fluids. You should complete your course of doxycycline prescribed from the emergency room. You may take this antibiotic with food to avoid stomach upset. The antibiotic can make your skin more sensitive to the sun so it is very important to cover your skin or use sunscreen on exposed skin while you are taking the antibiotic. You may have fevers for the next several days as the infection improves but they should be smaller each day. You may use acetaminophen to help calm down the fevers when they do occur. It is also very important to drink plenty of fluids because the fevers can cause dehydration. - Discharge Plan *PRESCRIPTION DRUG MONITORING PROGRAM REVIEWED*: Not Applicable *COPY OF PRESCRIPTION DRUG MONITORING REPORT IN PATIENT [place]: Not Applicable Home Medications: Home Meds Acetaminophen [Tylenol] 650 mg PO Q4HR PRN 09/01/15 [History] FLUoxetine [PROzac] 80 mg PO DAILY 04/03/19 [History] Gabapentin [Neurontin] 600 mg PO BEDTIME 04/03/19 [History] Cyanocobalamin (Vitamin B-12) [Vitamin B-12] 1,000 mcg SL DAILY 12/25/19 [ History] Thiamine HCl [Vitamin B-1] 100 mg PO DAILY 12/25/19 [History] buPROPion HCL [Wellbutrin Xl] 300 mg PO DAILY 12/25/19 [History] Doxycycline [Vibramycin] 100 mg PO BID 03/18/20 [History] Oxygen Therapy Mode: Room Air Patient Handouts: Doxycycline tablets or capsules, Ehrlichiosis and Anaplasmosis Referrals: Manuel Licona MD [Primary Care Provider] - (Follow-up as needed if symptoms do not continue to get better or if they get worse) - Discharge Summary/Plan Comment DC Time >30 min.: No - Patient Data Vitals - Most Recent: Last Vital Signs Temp 35.3 C L 03/19/20 10:40 Pulse 97 03/19/20 10:40 Resp 16 03/19/20 10:40 BP 128/61 03/19/20 10:40 Pulse Ox 95 03/19/20 10:40 Weight - Most Recent: 108.862 kg I&O - Last 24 hours: Intake & Output 03/18/20 03/19/20 03/19/20 22:59 06:59 14:59 Intake Total 600 Output Total 200 Balance -200 600 Lab Results - Last 24 hrs: Laboratory Results - last 24 hr 03/18/20 03/18/20 03/18/20 Range/Units 20:16 20:33 20:33 WBC 5.2 (4.5-11.0) K/uL RBC 5.53 (4.30-5.90) M/uL Hgb 16.0 H (12.0-15.0) g/dL Hct 47.1 (40.0-54.0) % MCV 85 (80-98) fL MCH 29 (27-31) pg MCHC 34 (32-36) % Plt Count 98 L (150-400) K/uL Neut % (Auto) 70 H (36-66) % Lymph % (Auto) 15 L (24-44) % [place] % (Auto) 14 H (2-6) % Eos % (Auto) 0 L (2-4) % Baso % (Auto) 1 (0-1) % Sodium 135 L (140-148) mmol/L Potassium 3.6 (3.6-5.2) mmol/L Chloride 99 L (100-108) mmol/L Carbon Dioxide 25 (21-32) mmol/L Anion Gap 14.6 H (5.0-14.0) mmol/L BUN 15 (7-18) mg/dL Creatinine 1.1 (0.8-1.3) mg/dL Est Cr Clr Drug Dosing 78.91 mL/min Estimated GFR (MDRD) > 60 (>60) Glucose 172 H (74-106) mg/dL Lactic Acid (0.4-2.0) mmol/L Calcium 8.3 L (8.5-10.1) mg/dL Total Bilirubin 0.5 (0.2-1.0) mg/dL AST 63 H (15-37) U/L ALT 125 H (12-78) U/L Alkaline Phosphatase 84 (46-116) U/L Lactate Dehydrogenase (85-227) U/L C-Reactive Protein 2.94 H (0.0-0.3) mg/dL Total Protein 6.9 (6.4-8.2) g/dL Albumin 3.3 L (3.4-5.0) g/dL Globulin 3.6 H (2.3-3.5) g/dL Albumin/Globulin Ratio 0.9 L (1.2-2.2) Procalcitonin ng/mL Urine Color (YELLOW) Urine Appearance (CLEAR) Urine pH (5.0-8.0) Ur Specific [place] (1.008-1.030) Urine Protein (NEGATIVE) mg/dL Urine Glucose (UA) (NEGATIVE) mg/dL Urine Ketones (NEGATIVE) mg/dL Urine Occult Blood (NEGATIVE) Urine Nitrite (NEGATIVE) Urine Bilirubin (NEGATIVE) Urine Urobilinogen (0.2-1.0) EU/dL Ur Leukocyte Esterase (NEGATIVE) Urine RBC (0-5) Urine WBC (0-5) Ur Epithelial Cells Amorphous Sediment Urine Bacteria Urine Mucus COVID-19 PCR Negative (NEGATIVE) 03/18/20 03/18/20 03/18/20 Range/Units 20:33 20:33 21:15 WBC (4.5-11.0) K/uL RBC (4.30-5.90) M/uL Hgb (12.0-15.0) g/dL Hct (40.0-54.0) % MCV (80-98) fL MCH (27-31) pg MCHC (32-36) % Plt Count (150-400) K/uL Neut % (Auto) (36-66) % Lymph % (Auto) (24-44) % [place] % (Auto) (2-6) % Eos % (Auto) (2-4) % Baso % (Auto) (0-1) % Sodium (140-148) mmol/L Potassium (3.6-5.2) mmol/L Chloride (100-108) mmol/L Carbon Dioxide (21-32) mmol/L Anion Gap (5.0-14.0) mmol/L BUN (7-18) mg/dL Creatinine (0.8-1.3) mg/dL Est Cr Clr Drug Dosing mL/min Estimated GFR (MDRD) (>60) Glucose (74-106) mg/dL Lactic Acid 1.8 (0.4-2.0) mmol/L Calcium (8.5-10.1) mg/dL Total Bilirubin (0.2-1.0) mg/dL AST (15-37) U/L ALT (12-78) U/L Alkaline Phosphatase (46-116) U/L Lactate Dehydrogenase 403 H (85-227) U/L C-Reactive Protein (0.0-0.3) mg/dL Total Protein (6.4-8.2) g/dL Albumin (3.4-5.0) g/dL Globulin (2.3-3.5) g/dL Albumin/Globulin Ratio (1.2-2.2) Procalcitonin 0.25 ng/mL Urine Color (YELLOW) Urine Appearance (CLEAR) Urine pH (5.0-8.0) Ur Specific [place] (1.008-1.030) Urine Protein (NEGATIVE) mg/dL Urine Glucose (UA) (NEGATIVE) mg/dL Urine Ketones (NEGATIVE) mg/dL Urine Occult Blood (NEGATIVE) Urine Nitrite (NEGATIVE) Urine Bilirubin (NEGATIVE) Urine Urobilinogen (0.2-1.0) EU/dL Ur Leukocyte Esterase (NEGATIVE) Urine RBC (0-5) Urine WBC (0-5) Ur Epithelial Cells Amorphous Sediment Urine Bacteria Urine Mucus COVID-19 PCR (NEGATIVE) 03/19/20 Range/Units 05:30 WBC (4.5-11.0) K/uL RBC (4.30-5.90) M/uL Hgb (12.0-15.0) g/dL Hct (40.0-54.0) % MCV (80-98) fL MCH (27-31) pg MCHC (32-36) % Plt Count (150-400) K/uL Neut % (Auto) (36-66) % Lymph % (Auto) (24-44) % [place] % (Auto) (2-6) % Eos % (Auto) (2-4) % Baso % (Auto) (0-1) % Sodium (140-148) mmol/L Potassium (3.6-5.2) mmol/L Chloride (100-108) mmol/L Carbon Dioxide (21-32) mmol/L Anion Gap (5.0-14.0) mmol/L BUN (7-18) mg/dL Creatinine (0.8-1.3) mg/dL Est Cr Clr Drug Dosing mL/min Estimated GFR (MDRD) (>60) Glucose (74-106) mg/dL Lactic Acid (0.4-2.0) mmol/L Calcium (8.5-10.1) mg/dL Total Bilirubin (0.2-1.0) mg/dL AST (15-37) U/L ALT (12-78) U/L Alkaline Phosphatase (46-116) U/L Lactate Dehydrogenase (85-227) U/L C-Reactive Protein (0.0-0.3) mg/dL Total Protein (6.4-8.2) g/dL Albumin (3.4-5.0) g/dL Globulin (2.3-3.5) g/dL Albumin/Globulin Ratio (1.2-2.2) Procalcitonin ng/mL Urine Color Yellow (YELLOW) Urine Appearance Slightly cloudy A (CLEAR) Urine pH 6.5 (5.0-8.0) Ur Specific [place] 1.025 (1.008-1.030) Urine Protein 30 H (NEGATIVE) mg/dL Urine Glucose (UA) Negative (NEGATIVE) mg/dL Urine Ketones Negative (NEGATIVE) mg/dL Urine Occult Blood Negative (NEGATIVE) Urine Nitrite Negative (NEGATIVE) Urine Bilirubin Negative (NEGATIVE) Urine Urobilinogen 1.0 (0.2-1.0) EU/dL Ur Leukocyte Esterase Negative (NEGATIVE) Urine RBC 0-5 (0-5) Urine WBC 5-10 H (0-5) Ur Epithelial Cells Few Amorphous Sediment Not seen Urine Bacteria Few Urine Mucus Not seen COVID-19 PCR (NEGATIVE) [facility] Results - Last 24 hrs: Microbiology 03/18/20 20:35 Influenza Type A Antigen Screen - Final Nasal, Unspecified NEGATIVE INFLUENZA A VIRUS AG REFERENCE RANGE: NEGATIVE Influenza Type B Antigen Screen - Final NEGATIVE INFLUENZA B VIRUS AG REFERENCE RANGE: NEGATIVE Med Orders - Current: Current Medications Acetaminophen (Tylenol) 650 mg PO Q4H PRN PRN Reason: Pain (Mild 1-3)/fever Last Admin: 03/19/20 08:05 Dose: 650 mg Bupropion HCl (Wellbutrin Xl) 300 mg PO DAILY [facility] Last Admin: 03/19/20 08:00 Dose: 300 mg Cyanocobalamin (Vitamin B12) 1,000 mcg PO DAILY [facility] Last Admin: 03/19/20 08:00 Dose: 1,000 mcg Doxycycline Hyclate (Vibramycin) 100 mg PO BID [facility] Last Admin: 03/19/20 08:00 Dose: 100 mg Fluoxetine HCl (Prozac) 80 mg PO DAILY [facility] Last Admin: 03/19/20 07:59 Dose: 80 mg Gabapentin (Neurontin) 600 mg PO BEDTIME [facility] Lactated Ringer's (Ringers, Lactated) 1,000 mls @ 999 mls/hr IV ASDIRECTED [facility] Last Admin: 03/18/20 20:38 Dose: 999 mls/hr Sodium Chloride (Normal Saline) 1,000 mls @ 125 mls/hr IV ASDIRECTED [facility] Last Admin: 03/19/20 08:05 Dose: 125 mls/hr Ceftriaxone Sodium 1 gm/ (Sodium Chloride) 50 mls @ 100 mls/hr IV Q24H [facility] Last Admin: 03/19/20 00:02 Dose: 100 mls/hr Thiamine HCl (Vitamin B-1) 100 mg PO DAILY [facility] Last Admin: 03/19/20 08:01 Dose: 100 mg Tramadol HCl (Ultram) 100 mg PO Q6H PRN PRN Reason: Pain Last Admin: 03/19/20 05:38 Dose: 50 mg Discontinued Medications Hydromorphone HCl (Dilaudid) 1 mg IVPUSH ONETIME ONE Stop: 03/18/20 20:27 Last Admin: 03/18/20 20:40 Dose: 1 mg Doxycycline Hyclate 100 mg/ (Sodium Chloride) 100 mls @ 100 mls/hr IV ONETIME ONE Stop: 03/18/20 21:15 Last Admin: 03/18/20 20:38 Dose: 100 mls/hr Tramadol HCl (Ultram) 50 mg PO Q6H PRN PRN Reason: Pain Last Admin: 03/19/20 04:21 Dose: 50 mg
[2020-03-19] MEDS ORDERED: Gabapentin 300 MG Cap PO SCH (21:00)
[2020-03-21 13:10] LABS: HGE IGG TITER Negative (Neg:<1:64); HGE IGM TITER Negative (Neg:<1:20)
[2020-03-21 16:10] LABS: BABESIA MICROTI IGG <1:10 (Neg:<1:10); BABESIA MICROTI IGM <1:10 (Neg:<1:10)
--- NOTE | 2020-03-24 09:04 | CR ---
CHEST: Portable 03/18/2020 at 9:51 PM CLINICAL HISTORY:SOB COMPARISON:CT 2018 FINDINGS: The heart is mildly enlarged. The pulmonary vascularity and hilar structures are normal. No infiltrate effusion or pneumothorax is seen. IMPRESSION: Mild cardiomegaly No acute cardiopulmonary process.
[2020-03-26 00:07] LABS: IGG P18 AB. Present (.); IGG P23 AB. Absent (.); IGG P28 AB. Absent (.); IGG P30 AB. Absent (.); IGG P39 AB. Absent (.); IGG P41 AB. Absent (.); IGG P45 AB. Absent (.); IGG P58 AB. Absent (.); IGG P66 AB. Absent (.); IGG P93 AB. Absent (.); IGM P23 AB. Absent (.); IGM P39 AB. Present (.); IGM P41 AB. Absent (.); LYME IGG WB INTERP. Negative (.); LYME IGG/IGM AB 0.92 ISR (0.00-0.90); LYME IGM WB INTERP. Negative (.)
== END 2020-03-19 11:21 | disposition home or self-care (01) ==
LOC: JP.ED 19:40 → JP.MS 22:17
PROVIDERS: ADMIT Family Medicine; ATTEND Internal Medicine
DX: R50.9 Fever, unspecified (principal); M79.10 Myalgia, unspecified site; M25.50 Pain in unspecified joint; R51 Headache; I10 Essential (primary) hypertension; F41.9 Anxiety disorder, unspecified; F32.9 Major depressive disorder, single episode, unspecified; F17.210 Nicotine dependence, cigarettes, uncomplicated; F43.10 Post-traumatic stress disorder, unspecified; E66.9 Obesity, unspecified; Z20.828 Contact with and (suspected) exposure to other viral communicable diseases; Z68.33 Body mass index [BMI] 33.0-33.9, adult; Z88.5 Allergy status to narcotic agent; Z89.021 Acquired absence of right finger(s); Z79.899 Other long term (current) drug therapy; W57.XXXA Bitten or stung by nonvenomous insect and other nonvenomous arthropods, initial encounter
CPT/HCPCS: 36415; 71045; 80053; 81001; 83605; 83615; 84145; 85025; 86140; 86666; 86753; 87040; 87804; 96361; 96365; 96367; 96375; 99284; A9270; G0378; J0696; J1170; J3490; J7030; J7050; J7120

== ENCOUNTER 2022-06-30 02:53 | Emergency (ER) | payer OTHER ==
[2022-06-30] MEDS ORDERED: Erythromycin Base 0.5% Ophth Oint 1 GM Tube EYEBOTH ONE (03:00)
[2022-06-30] MEDS ORDERED: Proparacaine 0.5% Ophth Soln 15 ML Bottle EYEBOTH ONE (03:00)
[2022-06-30 03:14] VITALS: BP 162/105; PULSE 107
[2022-06-30] MEDS ORDERED: oxyCODONE 5 MG Tab PO ONE (03:15)
== END 2022-06-30 03:25 | disposition home or self-care (01) ==
LOC: JP.ED 02:53
DX: H16.133 Photokeratitis, bilateral (principal); I10 Essential (primary) hypertension; F17.210 Nicotine dependence, cigarettes, uncomplicated; E66.9 Obesity, unspecified; Z68.34 Body mass index [BMI] 34.0-34.9, adult; Z88.6 Allergy status to analgesic agent; Z88.1 Allergy status to other antibiotic agents; Z88.8 Allergy status to other drugs, medicaments and biological substances
CPT/HCPCS: 99283; A9270

== ENCOUNTER 2022-11-19 02:49 | Emergency (ER) | payer OTHER ==
[2022-11-19 03:05] VITALS: BP 170/101; PULSE 114
== END 2022-11-19 03:53 | disposition home or self-care (01) ==
LOC: JP.ED 02:49
DX: C44.709 Unspecified malignant neoplasm of skin of left lower limb, including hip (principal); F17.210 Nicotine dependence, cigarettes, uncomplicated; I10 Essential (primary) hypertension; E66.9 Obesity, unspecified; Z68.36 Body mass index [BMI] 36.0-36.9, adult
CPT/HCPCS: 99282